=== PATIENT | male | born 1945 | race Two or more races ===

== ENCOUNTER 2017-11-21 09:25 | Emergency (ER) | payer OTHER ==
[~2017-11-21] VITALS: Ht 165.1 cm; Wt 71.2 kg
[2017-11-21 09:38] VITALS: BP 145/85
== END 2017-11-21 13:05 | disposition home or self-care (01) ==
LOC: ER 09:25
DX: S80.222A Blister (nonthermal), left knee, initial encounter (principal); L08.9 Local infection of the skin and subcutaneous tissue, unspecified; E11.9 Type 2 diabetes mellitus without complications; K21.9 Gastro-esophageal reflux disease without esophagitis; I10 Essential (primary) hypertension; E78.00 Pure hypercholesterolemia, unspecified; F12.10 Cannabis abuse, uncomplicated; Z87.891 Personal history of nicotine dependence; X58.XXXA Exposure to other specified factors, initial encounter; Y93.9 Activity, unspecified; Y99.8 Other external cause status; Y92.89 Other specified places as the place of occurrence of the external cause

== ENCOUNTER 2017-12-02 19:44 | Inpatient (IN) | payer OTHER ==
[~2017-12-02] VITALS: Ht 154.9 cm; Wt 67.6 kg
[2017-12-02 21:04] LABS: Basophils # (auto) 0.1 uL; Eosinophils # (auto) 0 uL; Eosinophils % (auto) 0.1 % (0.0-7.0); Hematocrit 33.2 % (41.0-53.0); Hemoglobin 10.5 g/dL (13.5-17.5)
[2017-12-02 21:06] LABS: Basophils % (auto) 0.7 % (0.0-2.0); Lymphocytes # (auto) 0.9 uL; Lymphocytes % (auto) 6.2 % (10.0-50.0); Mean Corpuscular Hemoglobin 26.4 pg (28.0-32.0); Mean Corpuscular Hgb Conc. 31.6 g/dL (32.0-36.0); Mean Corpuscular Volume 83.6 fL (80.0-100.0); Monocytes # (auto) 1.2 uL; Monocytes % (auto) 8.3 % (0.0-12.0); Neutrophils # (auto) 12.1 uL; Neutrophils % (auto) 84.7 % (37.0-80.0); Nucleated Red Blood Cells % 0.1 %; Platelet Count (auto) 310 10^3/uL (140-450); Red Blood Cells 3.97 10^6/uL (4.5-5.90); Red Cell Distribution Width 17.9 % (11.8-14.3); White Blood Cell 14.3 10^3/uL (4.4-10.8)
[2017-12-02 21:20] LABS: Alanine Aminotransferase 21 U/L (16-61); Anion Gap 10 (5-15); Aspartate Aminotransferase 26 U/L (15-37); BUN/Creatinine Ratio 17.7; Blood Alcohol < 3.0 mg/dL (0-5); Blood Urea Nitrogen 29 mg/dL (7-18); Calcium 8.3 mg/dL (8.5-10.1); Carbon Dioxide 26 mmol/L (21-32); Chloride 101 mmol/L (98-107); GFR African American 53 mL/min; GFR Non-African American 44 mL/min; Glucose 102 mg/dL (74-106); Potassium 4.2 mmol/L (3.5-5.1); Sodium 137 mmol/L (136-145)
[2017-12-02 21:26] LABS: Alkaline Phosphatase 102 U/L (45-117); Bilirubin, Total 0.3 mg/dL (0.2-1.0); Total Protein 7.7 g/dL (6.4-8.2)
[2017-12-03] MEDS ORDERED: ONDANSETRON HCL 4 MG/2 ML VIAL IV PRN (03:00)
[2017-12-03] MEDS ORDERED: HYDROcodone-ACET 5/325MG TAB PO PRN (03:00)
[2017-12-03] MEDS ORDERED: ACETAMINOPHEN 500 MG TAB PO PRN (03:00)
[2017-12-03] MEDS ORDERED: FUROSEMIDE 20 MG/2 ML VIAL IV ONE (03:15)
[2017-12-03 04:40] VITALS: BP 126/60
[2017-12-03 05:00] VITALS: BP 126/60
[2017-12-03 06:44] LABS: Eosinophils # (auto) 0.1 uL; Hemoglobin 10.3 g/dL (13.5-17.5); Lymphocytes # (auto) 2.5 uL; Monocytes # (auto) 1.1 uL; Monocytes % (auto) 9.4 % (0.0-12.0)
[2017-12-03 06:49] LABS: Basophils # (auto) 0.1 uL; Basophils % (auto) 0.6 % (0.0-2.0); Eosinophils % (auto) 0.6 % (0.0-7.0); Hematocrit 31.9 % (41.0-53.0); Lymphocytes % (auto) 21.5 % (10.0-50.0); Mean Corpuscular Hemoglobin 27.1 pg (28.0-32.0); Mean Corpuscular Hgb Conc. 32.2 g/dL (32.0-36.0); Mean Corpuscular Volume 84.2 fL (80.0-100.0); Neutrophils # (auto) 7.8 uL; Neutrophils % (auto) 67.9 % (37.0-80.0); Nucleated Red Blood Cells % 0.1 %; Platelet Count (auto) 289 10^3/uL (140-450); Red Blood Cells 3.79 10^6/uL (4.5-5.90); Red Cell Distribution Width 17.5 % (11.8-14.3); White Blood Cell 11.5 10^3/uL (4.4-10.8)
[2017-12-03 07:05] LABS: Calcium 8.6 mg/dL (8.5-10.1); Potassium 3.8 mmol/L (3.5-5.1)
[2017-12-03 07:09] LABS: BUN/Creatinine Ratio 16.4
[2017-12-03 07:24] LABS: Cholesterol 131 mg/dL (< 200); HDL Cholesterol 46 mg/dL (40-59); LDL Cholesterol 83 mg/dL (< 100); Triglycerides 113 mg/dL (< 150)
[2017-12-03 08:00] VITALS: BP 133/76
[2017-12-03 09:00] VITALS: BP 122/71
[2017-12-03] MEDS ORDERED: PNEUMOCOCCAL VACC POLYS 25 MCG/0.5 ML VIAL IM ONE (09:00)
[2017-12-03] MEDS ORDERED: FOLIC ACID 1 MG TAB PO SCH (10:00)
[2017-12-03] MEDS ORDERED: THIAMINE HCL 100 MG TAB PO SCH (10:00)
[2017-12-03 10:09] VITALS: BP 122/71
[2017-12-03 11:32] LABS: Urine Bacteria NONE SEEN /hpf (None Seen); Urine Blood Negative /uL (Negative); Urine Hyaline Cast FEW /lpf (0 - 2); Urine Specific Gravity 1.011 (1.001-1.035); Urine WBC 1 /hpf (0 - 3)
[2017-12-03 11:54] LABS: Alcohol, Urine < 3.0 mg/dL (0-5); Amphetamine Screen, Urine POSITIVE (NEGATIVE); Barbiturate Scree,Urine NEGATIVE (NEGATIVE); Benzodiazephine Screen, Urine NEGATIVE (NEGATIVE); Cannabinoid Screen, Urine NEGATIVE (NEGATIVE); Cocaine Screen, Urine NEGATIVE (NEGATIVE); Opiate Scree,Urine NEGATIVE (NEGATIVE)
[2017-12-03 12:02] LABS: Phencyclidine Screen, Urine NEGATIVE (NEGATIVE)
[2017-12-03 13:00] VITALS: BP 110/68
[2017-12-03] MEDS ORDERED: TAMSULOSIN HYDROCHLORIDE 0.4 MG CAP PO SCH (18:00)
[2017-12-03] MEDS ORDERED: INFLUENZA QUAD 2017-2018 0.5 ML SYRG IM ONE (20:00)
== END 2017-12-03 19:09 | disposition short-term general hospital (02) | DRG 292 ==
LOC: ER 19:44 → EDBD 19:44 → TELE 19:45 → TELE-WESTW 12-03 04:34
PROVIDERS: ADMIT Nurse Practitioner Family; ATTEND Family Medicine
DX: I11.0 Hypertensive heart disease with heart failure (principal); N17.9 Acute kidney failure, unspecified; D64.9 Anemia, unspecified; E11.9 Type 2 diabetes mellitus without complications; E44.1 Mild protein-calorie malnutrition; D72.829 Elevated white blood cell count, unspecified; E66.9 Obesity, unspecified; R55 Syncope and collapse; I50.31 Acute diastolic (congestive) heart failure; F10.10 Alcohol abuse, uncomplicated; K21.9 Gastro-esophageal reflux disease without esophagitis; Z87.891 Personal history of nicotine dependence; Z23 Encounter for immunization; Z68.28 Body mass index [BMI] 28.0-28.9, adult
CPT/HCPCS: 36415; 70450; 71045; 80048; 80053; 80061; 80307; 80320; 81001; 83605; 83880; 84484; 85025; 87040; 93005; 93306; 96374